=== PATIENT | female | born 1990 | race Two or more races ===

== ENCOUNTER 2018-03-24 23:50 | Inpatient (IN) | payer MEDICAID ==
[2018-03-25 00:27] LABS: APPEARANCE,URINE SLIGHTLY-CLOUDY; BILIRUBIN,URINE NEGATIVE (NEGATIVE); COLOR,URINE YELLOW; GLUCOSE, URINE NEGATIVE (NEGATIVE); KETONES,URINE NEGATIVE (NEGATIVE); LEUKOCYTE ESTERASE,URINE NEGATIVE (NEGATIVE); NITRITE,URINE NEGATIVE (NEGATIVE); PROTEIN,URINE NEGATIVE (NEGATIVE); URINE SPECIFIC GRAVITY 1.006; UROBILINOGEN,URINE NEGATIVE mg/dL (<2.0)
[2018-03-25 00:43] LABS: URINE AMPHETAMINES SCREEN NEGATIVE; URINE BARBITURATES SCREEN NEGATIVE; URINE BENZODIAZEPINES SCREEN NEGATIVE; URINE COCAINE SCREEN NEGATIVE; URINE MARIJUANA (THC) SCREEN NEGATIVE; URINE METHADONE SCREEN NEGATIVE; URINE PHENCYCLIDINE SCREEN NEGATIVE
[2018-03-25] MEDS ORDERED: LIDOCAINE 1% INJ-PF (10 MG/ML) 30 ML SDV ONE (00:57)
[2018-03-25] MEDS ORDERED: OXYTOCIN 10 UNIT/ML VIAL ONE (00:57)
[2018-03-25] MEDS ORDERED: MISOPROSTOL 0.2 MG TABLET ONE (00:57)
[2018-03-25] MEDS ORDERED: OXYTOCIN/NORMAL SALINE 20 UNIT/1,000 ML RTUINJ ONE (00:57)
[2018-03-25] MEDS ORDERED: RINGERS SOLUTION,LACTATED 1,000 ML IV ONE (01:08)
[2018-03-25] MEDS ORDERED: RINGERS SOLUTION,LACTATED 1,000 ML IV PRN (01:12)
[2018-03-25 01:32] LABS: ABSOLUTE BASOPHILS # (AUTO) 0.1 10^3/uL (0.0-0.2); ABSOLUTE EOSINOPHILS # (AUTO) 0.1 10^3/uL (0.0-0.6); ABSOLUTE LYMPHOCYTES (AUTO) 2.2 10^3/uL (0.5-4.7); ABSOLUTE NEUT (AUTO) 7.4 10^3/uL (1.7-8.2); BASOPHILS % (AUTO) 0.7 % (0-2); EOSINOPHILS % (AUTO) 0.7 % (0-6); HEMATOCRIT 37.9 % (36.0-47.0); HEMOGLOBIN 13.4 g/dL (12.0-15.5); LYMPHOCYTES % (AUTO) 20.4 % (13-45); MEAN CORPUSCULAR HEMOGLOBIN 30.6 pg (27.0-33.4); MEAN CORPUSCULAR HGB CONC 35.2 g/dL (32.0-36.0); MEAN CORPUSCULAR VOLUME 87 fl (80-97); MONOCYTES % (AUTO) 9.4 % (3-13); PLATELET COUNT 115 10^3/uL (150-450); RED BLOOD COUNT 4.37 10^6/uL (3.72-5.28); RED CELL DISTRIBUTION WIDTH 12.6 % (11.5-14.0); SEGMENTED NEUTROPHILS % (AUTO) 68.8 % (42-78); TOTAL CELLS COUNTED % (AUTO) 100 %; WHITE BLOOD COUNT 10.8 10^3/uL (4.0-10.5)
[2018-03-25] MEDS ORDERED: OXYTOCIN/NORMAL SALINE 20 UNIT/1,000 ML RTUINJ IV PRN ×2 (02:17→06:02)
[2018-03-25] MEDS ORDERED: FENTANYL/BUPIVACAINE/NS/PF 300 MCG/150 ML RTUINJ EPI ONE (03:16)
[2018-03-25] MEDS ORDERED: EPHEDRINE SULFATE INJ 50 MG/1 ML AMPULE ONE (03:16)
[2018-03-25] MEDS ORDERED: BUPIVACAINE HCL 0.25 % INJ/PF (2.5 MG/1 ML) 30 ML VIAL ONE (03:16)
--- NOTE | 2018-03-25 05:14 | Admission Physical ---
Datetime Report Generated by CPN: 03/25/2018 05:14 CURRENT ADMISSION Chief Complaint: Uterine Contractions; Suspected Ruptured Membranes Indication for Induction: Not Applicable Admit Impression : Term, Intrauterine ; Active Labor Admit Plan: Admit to Unit ALLERGIES Medication Allergies: No Latex: No Latex Allergies OBSTETRICAL HISTORY EDC: 04/02/2018 00:00 : 4 Para: 2 Term: 2 : 0 SAB: 0 IAB: 0 Ectopic: 0 Livin Cesareans: 0 VBACs: 0 Multiple Births: 0 Gestational Diabetes: No Rh Sensitization: No Incompetent Cervix: No YARIEL: No Infertility: No ART Treatment: No Uterine Anomaly: No IUGR: No Hx Previous C/S: No Macrosomia: No Hx Loss/Stillborn: No PIH: No Hx : No Placenta Previa/Abruption: No Depression/PP Depression: No PTL/PROM: No Post Hemorrhage: No Current Procedures: Ultrasound; NST Obstetrical History Comments: G1- 2013 at 40 weeks, 6lbs 8oz female G2- 2015 at 38 weeks, 7lbs 7 oz female G3- 2017 SAB at 6 weeks G4- current SEE RECORDS Alcohol: No Marijuana : No Cocaine: No Other Illicit Drugs: No Cigarettes: Never Smoker. 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 Heart Disease: No Hosp/Surgery: Yes Autoimmune Disorder: No Anesthetic Complications: No Kidney Disease: No Abnormal Pap Smear: No Neuro/Epilepsy: No Psychiatric Disorders: No Other Medical Diseases: No Hepatitis/Liver Disease: No Significant Family History: No Varicosities/Phlebitis: No Trauma/Violence : No Thyroid Dysfunction: No Medical History Comments: childbirth, oral sx INFECTIOUS HISTORY Gonorrhea: No Genital Herpes: No Chlamydia: No Tuberculosis: No Syphilis: No Hepatitis: No HIV/AIDS Exposure: No Rash or Viral Illness: No HPV: No PHYSICAL EXAM General: Normal HEENT: Normal Neurologic: Normal Thyroid: Normal Heart: Normal Lungs: Normal Breast: Deferred Back: Normal Abdomen: Normal Genitourinary Exam: Normal Extremities: Normal DTRs: Normal Pelvic Type: Adequate Vital Signs: Reviewed VAGINAL EXAM Dilatation: 8 Effacement: 100 Station: 1 MEMBRANES Pooling: Positive Membranes: Ruptured FETUS A EGA: 38.6 Monitoring: External US Variability: Moderate 6-25bpm Decelerations: None FHR Category: Category I Presentation: Vertex Admit Comment: anticipate delivery PLANS FOR LABOR AND DELIVERY Labor and Delivery: None Pain Management: Epidural Feeding Preference: Breast Benefit of Breast Feed Discussed: Yes Circumcision: N/A INFORMED CONSENT Signature: with User ID: [email or web address]
[2018-03-25] MEDS ORDERED: PROMETHAZINE HCL INJ 25 MG/1 ML VIAL IV PRN (06:02)
[2018-03-25] MEDS ORDERED: DIPHENHYDRAMINE HCL 25 MG CAPSULE PO PRN (06:02)
[2018-03-25] MEDS ORDERED: DIPH/PERTUSS(ACELL)/TETANUS VAC/PF 0.5 ML SYR (>=10YO) IM PRN (06:02)
[2018-03-25] MEDS ORDERED: ZOLPIDEM TARTRATE 5 MG TABLET PO PRN (06:02)
[2018-03-25] MEDS ORDERED: ACETAMINOPHEN 650 MG SUPP.RECT PR PRN (06:02)
[2018-03-25] MEDS ORDERED: PROMETHAZINE HCL 25 MG SUPP.RECT PR PRN (06:02)
[2018-03-25] MEDS ORDERED: NA PHOS,M-B/NA PHOS,DI-BA (ADULT) 133 ML ENEMA PR PRN (06:02)
[2018-03-25] MEDS ORDERED: GLYCERIN/WITCH HAZEL LEAF 1 EACH MED..PAD TP PRN (06:02)
[2018-03-25] MEDS ORDERED: BENZOCAINE/MENTHOL AEROSOL SPRAY 56 ML TOP PRN (06:02)
[2018-03-25] MEDS ORDERED: MAGNESIUM HYDROXIDE SUSP 30 ML UDCUP PO PRN (06:02)
[2018-03-25] MEDS ORDERED: PROMETHAZINE HCL 25 MG TABLET PO PRN (06:02)
[2018-03-25] MEDS ORDERED: DIBUCAINE 1% OINTMENT 28 GM TP PRN (06:02)
[2018-03-25] MEDS ORDERED: MEASLES,MUMPS&RUBELLA VACC/PF 0.5 ML VIAL SUBCUT PRN (06:02)
[2018-03-25] MEDS ORDERED: PSEUDOEPHEDRINE HCL 30 MG TABLET PO PRN (06:02)
[2018-03-25] MEDS ORDERED: ACETAMINOPHEN WITH CODEINE #3 TABLET PO PRN ×2 (06:02)
--- NOTE | 2018-03-25 07:04 | Delivery Summary ---
Del Sum A-C Datetime Report Generated by CPN: 03/25/2018 07:03 DELIVERY PERSONNEL DELIVERY PERSONNEL: [id number] Delivery Doctor:: Maddie Gordon MD Labor and Delivery Nurse:: Bharti Harley RNflight operations specialist Nurse:: Annika Cannon RN Android Architect/AIRPORT CLERK: Gloria Ross, ST MATERNAL INFORMATION Delivery Anesthesia: Epidural Medications After Delivery: Pitocin Drip 20 Units/1000ml NSS Estimated Blood Loss (ml): 250 Maternal Complications: None LABOR SUMMARY EDC: 04/02/2018 00:00 No. Babies in Womb: 1 Attempted: No Labor Anesthesia: Epidural LABOR INFORMATION Reason for Induction: Not Applicable Onset of Labor: 03/25/2018 02:30 Complete Dilatation: 03/25/2018 05:25 Oxytocin: Augmentation Group B Beta Strep: Negative Antibiotics # of Doses: 0 Antibiotics Time of Last Dose: N/A Name of Antibiotic Given: N/A Steroids Given: None Reason Steroids Not Administered: Not Applicable MEMBRANES Membranes Rupture Method: Spontaneous Rupture of Membranes: 03/24/2018 23:00 Length of Rupture (hr): 6.88 Amniotic Fluid Color: Clear Amniotic Fluid Amount: Moderate Amniotic Fluid Odor: None STAGES OF LABOR Stage 1 hr: 2 Stage 1 min: 55 Stage 2 hr: 0 Stage 2 min: 28 Stage 3 hr: 0 Stage 3 min: 5 Total Time in Labor hr: 3 Total Time in Labor min: 28 VAGINAL DELIVERY Episiotomy: None Laceration #1: None Laceration Extension #1: N/A Laceration Repair: Not Applicable Sponge Count Correct: Vaginal Sweep Performed Sharps Count Correct: Yes CSECTION DELIVERY Primary Indication: N/A Secondary Indication: N/A CSection Incidence: N/A Labor: N/A Elective: N/A CSection Incision: N/A BABY A INFORMATION Delivery Date/Time: 03/25/2018 05:53 Method of Delivery: Vaginal Born in Route : No : N/A Forceps: N/A Vacuum Extraction: N/A Shoulder Dystocia : No PRESENTATION/POSITION BABY A Presentation: Cephalic Cephalic Presentation: Vertex Vertex Position: Right Occipital Posterior Breech Presentation: N/A PLACENTA INFORMATION BABY A Placenta Delivery Time : 03/25/2018 05:58 Placenta Method of Delivery: Spontaneous Placenta Status: Delivered SCORES BABY A Heart Rate 1 min: >100 bpm Resp Effort 1 min: Good Cry Reflex Irritability 1 min: Cough or Sneeze or Pulls Away Muscle Tone 1 min: Active Motion Color 1 min: Blue/Pale SCORE 1 MIN: 8 Heart Rate 5 min: >100 bpm Resp Effort 5 min: Good Cry Reflex Irritability 5 min: Cough or Sneeze or Pulls Away Muscle Tone 5 min: Active Motion Color 5 min: Body [place], Extremities Blue SCORE 5 MIN: 9 INFANT INFORMATION BABY A Gestational Age at Delivery: 38.6 Gestational Status: Early Term- 37- 38.6 Weeks Outcome : Liveborn Condition : Stable Sex: Female IDENTIFICATION BABY A Verification Date/Time: 03/25/2018 06:16 ID Band Number: [id number] Mother's Name Verified: Yes Infant RN Verifying Infant: NDoyle RN, EJilek RN WEIGHT/LENGTH BABY A Birthweight (gm): 3342 Infant Weight (lb): 7 Weight (oz): 6 Length (in): 20.25 Length (cm): 51.44 CORD INFORMATION BABY A No. Cord Vessels: 3 Nuchal Cord : N/A Cord Blood Taken: Yes-For Eval (Mom's Blood Type - or O+) Suction: Mouth; Nose ASSESSMENT BABY A Infant Complications: None Physical Findings at Delivery: Within Normal Limits Respirations: Appears Normal Skin to Skin: Yes Transferred To: Remains with Mother BABY B INFORMATION : N/A SIGNATURES Signature: with User ID: [email or web address]
--- NOTE | 2018-03-25 07:53 | Warning Signs in Babies ---
VOD Warning Signs Datetime Report Generated by Mathieu: 03/25/2018 07:53 VOD#[id number] -Warning Signs in Babies: Needs to be viewed. (Annotations: attempt to watch video, care channel not working) (03/25/2018 07:49:Meena Barraza RN)
[2018-03-25] MEDS: PRENATAL VITAMIN W DHA CAPSULE PO SCH (10:01)
[2018-03-25] MEDS: DOCUSATE SODIUM 100 MG CAPSULE PO SCH ×2 (10:01→17:26)
[2018-03-25] MEDS: SENNOSIDES/DOCUSATE 8.6-50 MG 1 EACH TABLET PO SCH (10:01)
[2018-03-25] MEDS: FERROUS SULFATE 325 MG TABLET PO SCH ×2 (10:01→17:26)
[2018-03-25] MEDS: FAMOTIDINE 20 MG TABLET PO SCH ×2 (10:02→21:06)
[2018-03-25] MEDS: IBUPROFEN 800 MG TABLET PO SCH ×2 (14:06→21:06)
[2018-03-26] MEDS: IBUPROFEN 800 MG TABLET PO SCH ×2 (05:30→15:02)
[2018-03-26 07:29] LABS: HEMATOCRIT 35.8 % (36.0-47.0); HEMOGLOBIN 12.6 g/dL (12.0-15.5); MEAN CORPUSCULAR HEMOGLOBIN 30.8 pg (27.0-33.4); MEAN CORPUSCULAR HGB CONC 35.1 g/dL (32.0-36.0); MEAN CORPUSCULAR VOLUME 88 fl (80-97); PLATELET COUNT 103 10^3/uL (150-450); RED BLOOD COUNT 4.08 10^6/uL (3.72-5.28); RED CELL DISTRIBUTION WIDTH 13.1 % (11.5-14.0); WHITE BLOOD COUNT 8.8 10^3/uL (4.0-10.5)
--- NOTE | 2018-03-26 09:24 | PDOC DISCHARGE SUMMARY ---
Final Diagnosis Discharge Date: 03/26/18 - PP Day #1, pt desires to go home later on today. , O+, Rubella NI. - Final Diagnosis (1) (spontaneous vaginal delivery) Is this a current diagnosis for this admission?: Yes (2) Normal course Is this a current diagnosis for this admission?: Yes Discharge Data - Discharge Medication Prescriptions: Ibuprofen [Motrin 800 mg Tablet] 800 mg PO Q8 #60 tablet Home Medications: Vit,Calc76/Iron/Folic [Prenatabs Rx Tablet] 1 each PO DAILY 03/25/18 Ibuprofen [Motrin 800 mg Tablet] 800 mg PO Q8 #60 tablet 03/26/18 Reason(s) for Admission: Onset of Labor Procedures: Ultrasound Intrapartum Procedure(s): Spontaneous Vaginal Delivery - Diagnosis Test Laboratory: Temp Pulse Resp BP Pulse Ox 98.1 F 56 L 22 H 122/62 100 03/26/18 08:00 03/26/18 08:00 03/26/18 08:00 03/26/18 08:00 03/26/18 08:00 03/25/18 03/25/18 03/26/18 00:10 01:19 07:09 RBC 4.37 4.08 Hgb 13.4 12.6 Hct 37.9 35.8 L Urine Opiates Screen NEGATIVE - Discharge information/Instructions Discharge Activity: Activity As Tolerated, No Lifting Over 10 Pounds, Pelvic Rest Discharge Diet: As Tolerated, Regular Disposition: HOME, SELF-CARE Follow up with: [facility] in: 4, Weeks
[2018-03-26] MEDS: FAMOTIDINE 20 MG TABLET PO SCH (09:53)
[2018-03-26] MEDS: FERROUS SULFATE 325 MG TABLET PO SCH ×2 (09:53→18:35)
[2018-03-26] MEDS: PRENATAL VITAMIN W DHA CAPSULE PO SCH (09:53)
[2018-03-26] MEDS: SENNOSIDES/DOCUSATE 8.6-50 MG 1 EACH TABLET PO SCH (09:53)
[2018-03-26] MEDS: DOCUSATE SODIUM 100 MG CAPSULE PO SCH ×2 (09:54→18:35)
[2018-03-26 20:51] VITALS: BP 122/62
== END 2018-03-26 21:10 | disposition home or self-care (01) | DRG 807 ==
LOC: LC 23:50 → LR 03-25 00:34 → 2S 03-25 08:03
PROVIDERS: ADMIT Obstetrics & Gynecology; ATTEND Obstetrics & Gynecology
PROC: 10E0XZZ Delivery of Products of Conception, External Approach (ICD-10-PCS; principal; 2018-03-25)
PROC: 3E0234Z Introduction of Serum, Toxoid and Vaccine into Muscle, Percutaneous Approach (ICD-10-PCS; 2018-03-26)
PROC: 3E0234Z Introduction of Serum, Toxoid and Vaccine into Muscle, Percutaneous Approach (ICD-10-PCS; 2018-03-26)
DX: O80 Encounter for full-term uncomplicated delivery (principal); Z37.0 Single live birth; Z3A.38 38 weeks gestation of pregnancy; Z23 Encounter for immunization
CPT/HCPCS: 36415; 80307; 81005; 84112; 85025; 85027; 86592; 86850; 86900; 86901; 90707; 90715; J2590; J3010; J3490